=== PATIENT | male | born 1995 | race African-American/Black ===

== ENCOUNTER 2018-05-18 14:31 | Emergency (ER) | payer SELFPAY ==
[~2018-05-18] VITALS: Ht 170.2 cm; Wt 59.0 kg
[~2018-05-18 14:31] MED LIST: CEPHALEXIN500 MG ORAL; IBUPROFEN600 MG ORAL
[2018-05-18 14:52] VITALS: BP 114/70
--- NOTE | 2018-05-18 15:12 | Emergency Room Report ---
History of Present Illness General Chief Complaint: Wound Recheck/Suture Removal Source: Patient Present Illness HPI 22-year-old male patient presents ER for wound check. Patient was seen in ER 2 days ago for laceration on index finger left hand. Reports no erythema or swelling from site of injury. Reports mild blood noted. Reports is been taking medications implying ointment as previously instructed. Denies fever, chest pain, shortness of breath. Denies loss sensation or worsening of symptoms. Denies vomiting, other acute symptoms. Allergies: Coded Allergies: PUMPKIN (Verified Allergy, Unknown, 05/16/18) Patient History Past Medical History: see triage record Reviewed Nursing Documentation: PMH: Agreed; PSxH: Agreed Nursing Documentation-PMH Past Medical History: No Stated History Review of Systems All Other Systems: negative except mentioned in HPI Physical Exam Vital Signs Date Time Temp Pulse Resp B/P (MAP) Pulse Ox O2 Delivery O2 Flow Rate FiO2 05/18/18 14:44 98.1 61 16 114/70 96 Room Air 98.1 Sp02 EP Interpretation: reviewed, normal General Appearance: well appearing, no apparent distress, alert, GCS 15, non- toxic Head: normocephalic, atraumatic Eyes: bilateral eye normal inspection, bilateral eye PERRL ENT: hearing grossly normal, normal pharynx, no angioedema, normal voice, uvula midline, moist mucus membranes Respiratory: lungs clear, normal breath sounds, no rhonchi, no respiratory distress, no accessory muscle use, no wheezing, speaking full sentences Cardiovascular #1: regular rate, rhythm, no edema Cardiovascular #2: 2+ radial (R), 2+ radial (L) Musculoskeletal: back normal, digits/nails normal, gait/station normal, normal range of motion, non-tender, other - no fusiform swelling, no tenderness to palpation over flexor tendon Psychiatric: mood/affect normal Skin: laceration - healing 1 cm superficial laceration with sutures, linear located on palmar side of left index finger on middle phalanx, sensation intact to light touch, Refill less than 2 seconds, no erythema or edema, healing well Medical Decision Making PA Attestation Dr. Friend is my supervising Physician whom patient management has been discussed with. Diagnostic Impression: Primary Impression: Encounter for wound re-check ER Course Pt. presents to the ED requesting wound check of laceration on left index finger. Ddx considered but are not limited to cellulitis, abscess, wound check, folliculitis. No fusiform swelling, no TTP along flexor tendon, no pain with extension, finger not held in flexion, low suspicion for flexor tenosynovitis. Vital signs: are WNL, pt. is afebrile ER COURSE: Wound has no signs of infection., no erythema, edema, TTP, sensation is intact to light touch. Continued treatment as previously instructed. No active drainage. Return to ER or report to PCP in 5-7 days for suture removal. Clean with water, do not scrub. Care instructions provided. DISCHARGE: Patient instructed to continue with medications per initial ER provider instructions. At this time pt. is stable for d/c to home. Patient resting comfortably, in no acute distress, nontoxic appearing. Will provide printed patient care instructions and any necessary prescriptions. Care plan and follow up instructions have been discussed with the patient prior to discharge. Patient instructed to follow-up with primary care provider for further treatment and referral. Patient questions asked and answered. ER precautions given. Patient instructed to return to ER immediately for any new or worsening of symptoms including but not limited to fever, worsening of pain symptoms. - Please note that this Emergency Department Report was dictated using [employer] clinical technology software, occasionally this can lead to erroneous entry secondary to interpretation by the dictation equipment. Last Vital Signs Date Time Temp Pulse Resp B/P (MAP) Pulse Ox O2 Delivery O2 Flow Rate FiO2 05/18/18 14:52 98.1 84 16 114/70 96 Room Air 98.1 Disposition: HOME, SELF-CARE Condition: Stable Referrals: NOT CHOSEN [facility]/MD,REFERRING (PCP) Patient Instructions: Wound Check Additional Instructions: Followup with primary care provider or return to ER in 5-7 days for suture removal. Take medications as directed. Patient questions asked and answered. ER precautions given, patient instructed to return to ER immediately for any new or worsening of symptoms. René Peguero May 18, 2018 15:12
[2018-05-18 15:17] VITALS: BP 114/70
== END 2018-05-18 15:17 | disposition home or self-care (01) ==
LOC: EMR 14:58
DX: Z48.00 Encounter for change or removal of nonsurgical wound dressing (principal); S61.211D Laceration without foreign body of left index finger without damage to nail, subsequent encounter; Z91.018 Allergy to other foods
CPT/HCPCS: 99282

== ENCOUNTER 2018-05-24 04:26 | Emergency (ER) | payer SELFPAY ==
[~2018-05-24] VITALS: Ht 167.6 cm; Wt 59.0 kg
[2018-05-24 04:38] VITALS: BP 108/70
--- NOTE | 2018-05-24 04:48 | Emergency Room Report ---
History of Present Illness General Chief Complaint: Wound Recheck/Suture Removal Source: Patient Present Illness [facility] This is a 22-year-old male who is right-hand dominant. He presents with chief complaint of suture removal. He sustained a laceration last week after cut himself with a knife. It was sutured here. He was placed on antibiotics. He has no complication since. He finished antibiotics already. Allergies: Coded Allergies: PUMPKIN (Verified Allergy, Unknown, 05/16/18) Patient History Past Medical History: none, see triage record, old chart reviewed Past Surgical History: none Pertinent Family History: none Social History: Denies: smoking Immunizations: UTD Reviewed Nursing Documentation: PMH: Agreed; PSxH: Agreed Nursing Documentation-PMH Past Medical History: No Stated History Review of Systems Eye: Denies: eye pain, blurred vision ENT: Denies: ear pain, nose congestion, throat swelling Respiratory: Denies: cough, shortness of breath Cardiovascular: Denies: chest pain, palpitations Gastrointestinal: Denies: abdominal pain, diarrhea, nausea, vomiting Musculoskeletal: Denies: back pain, joint pain Skin: Denies: rash Neurological: Denies: headache, numbness Endocrine: Denies: increased thirst, increased urine Hematologic/Lymphatic: Denies: easy bruising All Other Systems: negative except mentioned in HPI Physical Exam Vital Signs Date Time Temp Pulse Resp B/P (MAP) Pulse Ox O2 Delivery O2 Flow Rate FiO2 05/24/18 04:31 98.2 48 16 108/70 96 Room Air 98.2 vitals normal Sp02 EP Interpretation: reviewed, normal General Appearance: well appearing, no apparent distress, alert Head: normocephalic, atraumatic Eyes: bilateral eye PERRL, bilateral eye EOMI ENT: hearing grossly normal, normal pharynx Neck: full range of motion, supple, no meningismus Respiratory: chest non-tender, lungs clear, normal breath sounds Cardiovascular #1: regular rate, rhythm, no murmur Gastrointestinal: normal bowel sounds, non tender, no mass, no organomegaly, no bruit, non-distended Musculoskeletal: back normal, gait/station normal, normal range of motion, other - Left index finger: Laceration site is clean without any evidence of infection. Neurologic: alert, oriented x3 Psychiatric: mood/affect normal Skin: warm/dry Procedures Additional Procedure Procedure Narrative Procedure: Suture removal Indication: Scheduled suture removal Description: I cleaned the area with alcohol. I removed move the suture with small scissor. No complication . Patient tolerated procedure without a problem. Medical Decision Making Diagnostic Impression: Primary Impression: Encounter for removal of sutures ER Course Patient here for suture removal. No infection. Last Vital Signs Date Time Temp Pulse Resp B/P (MAP) Pulse Ox O2 Delivery O2 Flow Rate FiO2 05/24/18 04:38 98.2 48 16 108/70 96 Room Air 98.2 Status: improved Disposition: HOME, SELF-CARE Condition: Stable Additional Instructions: Follow-up your doctor as needed. Return for evidence of infection. MITCHELL POTTER M.D. May 24, 2018 04:48
[2018-05-24 04:49] VITALS: BP 0/0
== END 2018-05-24 04:49 | disposition home or self-care (01) ==
LOC: EMR 04:49
DX: Z48.02 Encounter for removal of sutures (principal); S61.219D Laceration without foreign body of unspecified finger without damage to nail, subsequent encounter; Z91.048 Other nonmedicinal substance allergy status
CPT/HCPCS: 99281